=== PATIENT | male | born 1960 | race Caucasian/White ===

== ENCOUNTER 2020-11-30 06:32 | Outpatient (REF) | payer OTHER, SELFPAY ==
[2020-11-30 11:20] LABS: MANUAL DIFF FLAG NO
[2020-11-30 11:35] LABS: Basophils Absolute Auto 0.1 X10*3/uL (0.0-0.2); Basophils Percent Auto 0.6 % (0-2); Eosinophils Absolute Auto 0.6 X10*3/uL (0.0-0.4); Eosinophils Percent Auto 6.5 % (0-4); Hematocrit 48.3 % (42-52); Hemoglobin 16.9 g/dl (14.0-18.0); Imm Gran Abs Auto 0.03 X10*3/uL (0.00-0.03); Imm Gran Pct Auto 0.4 % (0.0-0.4); Lymphocytes Absolute Auto 2.5 X10*3/uL (1.2-4.9); Lymphocytes Percent Auto 29.4 % (20-40); Mean Corpuscular Hemoglobin 31.2 pg (27.0-33.0); Mean Corpuscular Volume 89.3 fL (80-98); Mean Platelet Volume 11.7 fL (9.4-12.4); Monocytes Absolute Auto 0.8 X10*3/uL (0.1-1.2); Monocytes Percent Auto 8.9 % (2-11); Neutrophils Absolute Auto 4.6 X10*3/uL (2.0-8.3); Neutrophils Percent Auto 54.2 % (45-73); Platelet Count 281 X10*3/uL (160-400); Red Blood Count 5.41 X10*6/uL (4.60-5.80); Red Cell Distribution Width 13.2 % (11.0-16.0); White Blood Count 8.5 X10*3/uL (4.8-10.8)
[2020-11-30 11:56] LABS: HDL Cholesterol 21 mg/dL; Triglycerides 4780 mg/dL
[2020-11-30 12:00] LABS: Cholesterol 530 mg/dL
[2020-11-30 12:07] LABS: Hemoglobin A1c % > 14.0 %
[2020-11-30 12:49] LABS: Alanine Aminotransferase 29 U/L (0-40); Albumin Level 4.3 g/dL (3.5-5.0); Alkaline Phosphatase 226 U/L (39-117); Anion Gap 22 (12-20); Aspartate Amino Transferase 20 U/L (5-37); Bilirubin Total 0.5 mg/dL (0.0-1.0); Blood Urea Nitrogen 28 mg/dL (9-16); Calcium 10.1 mg/dL (8.4-10.2); Carbon Dioxide 22 mmol/L (22-29); Chloride 84 mmol/L (96-108); Estimated Glomerular Filt Rate 36; Potassium 5.4 mmol/L (3.3-5.1); Sodium 123 mmol/L (135-145)
[2020-11-30 13:05] LABS: Glucose Fasting 897 mg/dL (60-99)
== END 2020-11-30 06:33 | disposition home or self-care (01) ==
LOC: HO.HMGCLDS 06:32
PROVIDERS: PCP Internal Medicine; Visit Provider Internal Medicine
DX: Z00.01 Encounter for general adult medical examination with abnormal findings (principal); G47.33 Obstructive sleep apnea (adult) (pediatric); J44.1 Chronic obstructive pulmonary disease with (acute) exacerbation
CPT/HCPCS: 36415; 80053; 80061; 83036; 85025

== ENCOUNTER 2020-12-01 10:13 | Emergency (ER) | payer OTHER, SELFPAY ==
--- NOTE | 2020-12-01 10:21 | ECG_ITS ---
Test Reason : GENERAL MEDICAL Blood Pressure : / mmHG Vent. Rate : 105 BPM Atrial Rate : 105 BPM P-R Int : 134 ms QRS Dur : 104 ms QT Int : 344 ms P-R-T Axes : 088 -64 072 degrees QTc Int : 454 ms Sinus tachycardia Left axis deviation Anterior infarct , age undetermined Abnormal ECG No previous ECGs available Referred By: Pily Baptiste Electronically Signed By:KILO MOTA
--- NOTE | 2020-12-01 10:22 | ED.GENADULT ---
HPI - General Adult General Chief complaint: General Medical Stated complaint: Kidney issues Time Seen by Provider: 12/01/20 10:19 Source: patient Mode of arrival: ambulatory (from PCP Cr 1.9 and blood sugar > 800) Limitations: no limitations History of Present Illness HPI narrative: 60 yo male with hx of COPD here with 3 weeks of 10lb weight loss, insomnia, polyuria, polydipsia, severe dry mouth dx with DM 2 days ago by PCP started on 15 units TID with meals, lantus at night - sent to ED today after visit to PCP this AM BS in 800s and Cr 1.9 - patient did take 15 U of insulin at 9am and on ED arrival BS is in 400s, Hemoglobin A1C is > 14.0 Onset (ago): week(s) (3) Severity: moderate Relieving factors: none Exacerbating factors: eating Associated symptoms: loss of appetite, malaise and other (polyuria, polydipsia, weight loss, dry mouth) Treatments prior to arrival: other (started on TID insulin yesterday and lantus took 15 units of short acting insulin at 9am today) Related Data Home Medications Medication Instructions Recorded Confirmed albuterol sulfate 1 puff PO BID PRN 12/01/20 12/01/20 fluticasone propion-salmeterol 1 puff INHALATION BID 12/01/20 12/01/20 [Dimitryxela Inhub] Previous Rx's Medication Instructions Recorded pen needle, diabetic [Lite Touch #100 ea 12/01/20 Insulin Pen [place]] Allergies Allergy/AdvReac Type Severity Reaction Status Date / Time Unable to Assess Allergy Verified 12/01/20 10:21 Review of Systems Review of Systems: Constitutional : pos Weight loss, No Fever, No Chills, No Fatigue, No Malaise ENT/Mouth : No sore throat, No Rhinorrhea Eyes: No Eye Pain, No Swelling, No Redness Cardiovascular : No Chest Pain, No SOB, No Dyspnea on Exertion, No Orthopnea, No Edema, No Palpitations Respiratory : No Cough, No Sputum, No Wheezing Gastrointestinal : No Nausea, No Vomiting, No Diarrhea, No Constipation, No abdominal Pain, No Hematochezia, No Melena Genitourinary : No Dysuria, No Urinary Frequency, No Hematuria, Musculoskeletal : No joint pain, No Myalgias, No Joint Swelling Skin : No Skin Lesions, No rash Neuro : pos Weakness, No Numbness, No Dizziness, No Headache Psych : No Anxiety/Panic, No Depression Heme/Lymph: No Bruising, No Bleeding,No Lymphadenopathy Endocrine : pos Polyuria, pos Polydipsia All other systems reviewed and are negative [facility] Past Medical History Attestation statement: The following information was validated with the patient. Medical History (Updated 12/01/20 @ 16:26 by Pily Baptiste DO) COPD (chronic obstructive pulmonary disease) Diabetes Surgical History S/P laparoscopic cholecystectomy Social History Social History (Updated 12/01/20 @ 10:38 by Pily Baptiste DO) Alcohol intake: never Smoking Status: Former smoker Advance Directives: No Advance Directives Information Provided: Yes Physical Exam Vital Signs: Vital Signs: Last Vital Signs Temp 97.5 F 12/01/20 15:41 Pulse 82 12/01/20 15:41 Resp 16 12/01/20 15:41 BP 122/80 12/01/20 15:41 Pulse Ox 95 12/01/20 15:41 Body Mass Index 27.7 Appearance: Alert. Oriented X3. No acute distress. Eyes: Pupils equal, round and reactive to light. ENT: Pharynx dry MMM Neck: Normal inspection. Neck supple. CVS: Normal heart rate and rhythm. Pulses normal. Respiratory: No respiratory distress. Breath sounds diminished throughout. Abdomen: Soft and nontender. Skin: Skin warm and dry. Normal skin color. poor skin turgor. Extremities: No lower extremity edema. No calf ttp Neuro: Oriented X 3. No motor deficit. No sensory deficit. Course Course Course Narrative: given improvement of his labs from 6am yesterday to 11am today he fixed his DKA with insulin regimen at home - plan is to hydrate, give IV insulin here and recheck trop (no CP/SOB) and repeat chemistries if improved and trop remains flat stable for DC no AG here doubt DKA labs corrected, EKG does have some changes but no ROSALINA, no CP/SOB and trop remains flat also no priors available ACS seems unlikely at this time given he is corrected can be DC is already on insulin TID and lantus by PCP pharmacy called meter in pharmacy just needs insulin pen needles Medical Decision Making MDM Narrative Medical decision making narrative: 60 yo male with hx of COPD here with 3 weeks of 10lb weight loss, insomnia, polyuria, polydipsia, severe dry mouth dx with DM 2 days ago by PCP started on 15 units TID with meals, lantus at night - sent to ED today after visit to PCP this AM BS in 800s and Cr 1.9 - patient did take 15 U of insulin at 9am and on ED arrival BS is in 400s, Hemoglobin A1C is > 14.0 at this time will need labs, EKG, UA, IVF, IV insulin - no prior Cr to base it off of at this time pending workup and treatment in ED may need admission vs outpatient care. Lab Data Result diagrams: 12/01/20 11:09 12/01/20 15:09 Labs: Lab Results 12/01/20 12/01/20 12/01/20 Range/Units 10:26 11:09 11:09 WBC 8.9 (4.8-10.8) X10*3/uL RBC 5.40 (4.60-5.80) X10*6/uL Hgb 16.3 (14.0-18.0) g/dl Hct 46.9 (42-52) % MCV 86.9 (80-98) fL MCH 30.2 (27.0-33.0) pg MCHC 34.8 (31.0-36.0) g/dl RDW 12.9 (11.0-16.0) % Plt Count 244 (160-400) X10*3/uL MPV 10.9 (9.4-12.4) fL Immature Gran % (Auto) 0.3 (0.0-0.4) % Neut % (Auto) 60.6 (45-73) % Lymph % (Auto) 24.5 (20-40) % [place] % (Auto) 8.7 (2-11) % Eos % (Auto) 5.4 H (0-4) % Baso % (Auto) 0.5 (0-2) % Lymph # (Auto) 2.2 (1.2-4.9) X10*3/uL [place] # (Auto) 0.8 (0.1-1.2) X10*3/uL Eos # (Auto) 0.5 H (0.0-0.4) X10*3/uL Baso # (Auto) 0.0 (0.0-0.2) X10*3/uL Abs Immat Gran (auto) 0.03 (0.00-0.03) X10*3/uL Absolute Neuts (auto) 5.4 (2.0-8.3) X10*3/uL Absolute Nucleated RBC 0.000 (0.0-0.012) X10*3/uL Nucleated RBC % (auto) 0.0 (0.0-0.2) /100WBC PT 11.5 (10.8-13.0) SEC INR 1.0 (0.9-1.1) APTT 31.6 (24.1-38.0) SEC VBG pH (7.32-7.43) VBG pCO2 mmHg VBG pO2 mmHg VBG HCO3 (22-26) mmol/L VBG O2 Saturation % VBG Base Excess mmol/L Sodium (135-145) mmol/L Potassium (3.3-5.1) mmol/L Chloride (96-108) mmol/L Carbon Dioxide (22-29) mmol/L Anion Gap (12-20) BUN (9-16) mg/dL Creatinine (0.5-1.4) mg/dL Estim Creat Clear Calc Estimated GFR POC Glucose 457 H* (60-115) mg/dL Random Glucose (60-115) mg/dL Lactic Acid (0.5-2.0) mmol/L Calcium (8.4-10.2) mg/dL Magnesium (1.6-2.6) mg/dL Total Bilirubin (0.0-1.0) mg/dL Direct Bilirubin (0.0-0.5) mg/dL AST (5-37) U/L ALT (0-40) U/L Alkaline Phosphatase (39-117) U/L Troponin I High Sens (<3.5-35.0) ng/L Total Protein (6.5-8.0) g/dL Albumin (3.5-5.0) g/dL Lipase (8-78) U/L Acetone, Qual (Negative) COVID-19 ([place]ULINA) (Negative) COVID-19 Clin Com 12/01/20 12/01/20 12/01/20 Range/Units 11:09 11:09 11:09 WBC (4.8-10.8) X10*3/uL RBC (4.60-5.80) X10*6/uL Hgb (14.0-18.0) g/dl Hct (42-52) % MCV (80-98) fL MCH (27.0-33.0) pg MCHC (31.0-36.0) g/dl RDW (11.0-16.0) % Plt Count (160-400) X10*3/uL MPV (9.4-12.4) fL Immature Gran % (Auto) (0.0-0.4) % Neut % (Auto) (45-73) % Lymph % (Auto) (20-40) % [place] % (Auto) (2-11) % Eos % (Auto) (0-4) % Baso % (Auto) (0-2) % Lymph # (Auto) (1.2-4.9) X10*3/uL [place] # (Auto) (0.1-1.2) X10*3/uL Eos # (Auto) (0.0-0.4) X10*3/uL Baso # (Auto) (0.0-0.2) X10*3/uL Abs Immat Gran (auto) (0.00-0.03) X10*3/uL Absolute Neuts (auto) (2.0-8.3) X10*3/uL Absolute Nucleated RBC (0.0-0.012) X10*3/uL Nucleated RBC % (auto) (0.0-0.2) /100WBC PT (10.8-13.0) SEC INR (0.9-1.1) APTT (24.1-38.0) SEC VBG pH (7.32-7.43) VBG pCO2 mmHg VBG pO2 mmHg VBG HCO3 (22-26) mmol/L VBG O2 Saturation % VBG Base Excess mmol/L Sodium 129 L (135-145) mmol/L Potassium 4.6 (3.3-5.1) mmol/L Chloride 90 L (96-108) mmol/L Carbon Dioxide 24 (22-29) mmol/L Anion Gap 20 (12-20) BUN 28 H (9-16) mg/dL Creatinine 1.63 H (0.5-1.4) mg/dL Estim Creat Clear Calc 53.7 Estimated GFR 43 POC Glucose (60-115) mg/dL Random Glucose 433 H* (60-115) mg/dL Lactic Acid 1.9 (0.5-2.0) mmol/L Calcium 10.1 (8.4-10.2) mg/dL Magnesium 2.2 (1.6-2.6) mg/dL Total Bilirubin 0.7 (0.0-1.0) mg/dL Direct Bilirubin 0.2 (0.0-0.5) mg/dL AST 37 D (5-37) U/L ALT 34 (0-40) U/L Alkaline Phosphatase 132 H D (39-117) U/L Troponin I High Sens 79.8 H (<3.5-35.0) ng/L Total Protein 6.9 (6.5-8.0) g/dL Albumin 4.2 (3.5-5.0) g/dL Lipase 21 (8-78) U/L Acetone, Qual Small H (Negative) COVID-19 ([place]) (Negative) COVID-19 Clin Com 12/01/20 12/01/20 12/01/20 Range/Units 11:09 11:15 12:12 WBC (4.8-10.8) X10*3/uL RBC (4.60-5.80) X10*6/uL Hgb (14.0-18.0) g/dl Hct (42-52) % MCV (80-98) fL MCH (27.0-33.0) pg MCHC (31.0-36.0) g/dl RDW (11.0-16.0) % Plt Count (160-400) X10*3/uL MPV (9.4-12.4) fL Immature Gran % (Auto) (0.0-0.4) % Neut % (Auto) (45-73) % Lymph % (Auto) (20-40) % [place] % (Auto) (2-11) % Eos % (Auto) (0-4) % Baso % (Auto) (0-2) % Lymph # (Auto) (1.2-4.9) X10*3/uL [place] # (Auto) (0.1-1.2) X10*3/uL Eos # (Auto) (0.0-0.4) X10*3/uL Baso # (Auto) (0.0-0.2) X10*3/uL Abs Immat Gran (auto) (0.00-0.03) X10*3/uL Absolute Neuts (auto) (2.0-8.3) X10*3/uL Absolute Nucleated RBC (0.0-0.012) X10*3/uL Nucleated RBC % (auto) (0.0-0.2) /100WBC PT (10.8-13.0) SEC INR (0.9-1.1) APTT (24.1-38.0) SEC VBG pH 7.42 (7.32-7.43) VBG pCO2 40 mmHg VBG pO2 43 mmHg VBG HCO3 26 (22-26) mmol/L VBG O2 Saturation 73.0 % VBG Base Excess 1.5 mmol/L Sodium (135-145) mmol/L Potassium (3.3-5.1) mmol/L Chloride (96-108) mmol/L Carbon Dioxide (22-29) mmol/L Anion Gap (12-20) BUN (9-16) mg/dL Creatinine (0.5-1.4) mg/dL Estim Creat Clear Calc Estimated GFR POC Glucose 365 H* (60-115) mg/dL Random Glucose (60-115) mg/dL Lactic Acid (0.5-2.0) mmol/L Calcium (8.4-10.2) mg/dL Magnesium (1.6-2.6) mg/dL Total Bilirubin (0.0-1.0) mg/dL Direct Bilirubin (0.0-0.5) mg/dL AST (5-37) U/L ALT (0-40) U/L Alkaline Phosphatase (39-117) U/L Troponin I High Sens (<3.5-35.0) ng/L Total Protein (6.5-8.0) g/dL Albumin (3.5-5.0) g/dL Lipase (8-78) U/L Acetone, Qual (Negative) COVID-19 ([place]) Negative (Negative) COVID-19 Clin Com See Note 12/01/20 12/01/20 12/01/20 Range/Units 15:09 15:09 15:35 WBC (4.8-10.8) X10*3/uL RBC (4.60-5.80) X10*6/uL Hgb (14.0-18.0) g/dl Hct (42-52) % MCV (80-98) fL MCH (27.0-33.0) pg MCHC (31.0-36.0) g/dl RDW (11.0-16.0) % Plt Count (160-400) X10*3/uL MPV (9.4-12.4) fL Immature Gran % (Auto) (0.0-0.4) % Neut % (Auto) (45-73) % Lymph % (Auto) (20-40) % [place] % (Auto) (2-11) % Eos % (Auto) (0-4) % Baso % (Auto) (0-2) % Lymph # (Auto) (1.2-4.9) X10*3/uL [place] # (Auto) (0.1-1.2) X10*3/uL Eos # (Auto) (0.0-0.4) X10*3/uL Baso # (Auto) (0.0-0.2) X10*3/uL Abs Immat Gran (auto) (0.00-0.03) X10*3/uL Absolute Neuts (auto) (2.0-8.3) X10*3/uL Absolute Nucleated RBC (0.0-0.012) X10*3/uL Nucleated RBC % (auto) (0.0-0.2) /100WBC PT (10.8-13.0) SEC INR (0.9-1.1) APTT (24.1-38.0) SEC VBG pH (7.32-7.43) VBG pCO2 mmHg VBG pO2 mmHg VBG HCO3 (22-26) mmol/L VBG O2 Saturation % VBG Base Excess mmol/L Sodium 128 L (135-145) mmol/L Potassium 4.1 (3.3-5.1) mmol/L Chloride 94 L (96-108) mmol/L Carbon Dioxide 22 (22-29) mmol/L Anion Gap 16 (12-20) BUN 23 H (9-16) mg/dL Creatinine 1.17 (0.5-1.4) mg/dL Estim Creat Clear Calc 74.9 Estimated GFR > 60 POC Glucose 302 H (60-115) mg/dL Random Glucose 295 H (60-115) mg/dL Lactic Acid (0.5-2.0) mmol/L Calcium 8.9 D (8.4-10.2) mg/dL Magnesium (1.6-2.6) mg/dL Total Bilirubin (0.0-1.0) mg/dL Direct Bilirubin (0.0-0.5) mg/dL AST (5-37) U/L ALT (0-40) U/L Alkaline Phosphatase (39-117) U/L Troponin I High Sens 68.7 H (<3.5-35.0) ng/L Total Protein (6.5-8.0) g/dL Albumin (3.5-5.0) g/dL Lipase (8-78) U/L Acetone, Qual (Negative) COVID-19 ([place]) (Negative) COVID-19 Clin Com 12/01/20 Range/Units 16:18 WBC (4.8-10.8) X10*3/uL RBC (4.60-5.80) X10*6/uL Hgb (14.0-18.0) g/dl Hct (42-52) % MCV (80-98) fL MCH (27.0-33.0) pg MCHC (31.0-36.0) g/dl RDW (11.0-16.0) % Plt Count (160-400) X10*3/uL MPV (9.4-12.4) fL Immature Gran % (Auto) (0.0-0.4) % Neut % (Auto) (45-73) % Lymph % (Auto) (20-40) % [place] % (Auto) (2-11) % Eos % (Auto) (0-4) % Baso % (Auto) (0-2) % Lymph # (Auto) (1.2-4.9) X10*3/uL [place] # (Auto) (0.1-1.2) X10*3/uL Eos # (Auto) (0.0-0.4) X10*3/uL Baso # (Auto) (0.0-0.2) X10*3/uL Abs Immat Gran (auto) (0.00-0.03) X10*3/uL Absolute Neuts (auto) (2.0-8.3) X10*3/uL Absolute Nucleated RBC (0.0-0.012) X10*3/uL Nucleated RBC % (auto) (0.0-0.2) /100WBC PT (10.8-13.0) SEC INR (0.9-1.1) APTT (24.1-38.0) SEC VBG pH (7.32-7.43) VBG pCO2 mmHg VBG pO2 mmHg VBG HCO3 (22-26) mmol/L VBG O2 Saturation % VBG Base Excess mmol/L Sodium (135-145) mmol/L Potassium (3.3-5.1) mmol/L Chloride (96-108) mmol/L Carbon Dioxide (22-29) mmol/L Anion Gap (12-20) BUN (9-16) mg/dL Creatinine (0.5-1.4) mg/dL Estim Creat Clear Calc Estimated GFR POC Glucose 328 H (60-115) mg/dL Random Glucose (60-115) mg/dL Lactic Acid (0.5-2.0) mmol/L Calcium (8.4-10.2) mg/dL Magnesium (1.6-2.6) mg/dL Total Bilirubin (0.0-1.0) mg/dL Direct Bilirubin (0.0-0.5) mg/dL AST (5-37) U/L ALT (0-40) U/L Alkaline Phosphatase (39-117) U/L Troponin I High Sens (<3.5-35.0) ng/L Total Protein (6.5-8.0) g/dL Albumin (3.5-5.0) g/dL Lipase (8-78) U/L Acetone, Qual (Negative) COVID-19 ([place]) (Negative) COVID-19 Clin Com ECG Data Attestation: I personally reviewed and interpreted this ECG as follows: Interpretation: Rate: 105 Rhythm: sinus tachycardia [place]: left Normal P waves. Normal LEE. Normal QRS interval. poor R wave progression ST T wave : no ROSALINA, inverted T waves in V6/aVL qTC: normal prior studies: no priors The study has been interpreted contemporaneously by me. . Critical Care Time Critical Care Time Critical Care Time: Yes Total Critical Care Time: 60 Attestation: 2L of IVF, repeat insulin, call to his pharmacy and providers to check for Rx I attest to this time spent taking care of the patient Discharge Plan Discharge Clinical Impression: Hyperglycemia, JENNIFER (acute kidney injury) Patient Disposition: Home, Self-Care Instructions: Diabetic Hyperglycemia (ED), Diabetes and Nutrition (ED) Additional Instructions: return to ED for any worsening symptoms or concerns PLEASE FOLLOW UP CLOSELY WITH YOUR PRIMARY CARE DOCTOR Prescriptions: New (DME) pen needle, diabetic [Lite Touch Insulin Pen [place]] 29 gauge x 1/2 needle See Rx Instructions .ROUTE .MEDSUPPLY Qty: 100 RF: 0 No Action fluticasone propion-salmeterol [Wixela Inhub] 250-50 mcg/dose blister with device 1 puff inhalation BID RF: 0 albuterol sulfate 90 mcg/actuation HFA aerosol inhaler 1 puff PO BID PRN (Reason: Shortness Of Breath) RF: 0
[2020-12-01 10:36] VITALS: BP 118/79; PULSE 111; RESP 18; TEMP 36.8; O2SAT 95; BMI 27.7
[2020-12-01 10:36] LABS: Glucose, Whole Blood 457 mg/dL (60-115)
[2020-12-01 11:17] LABS: MANUAL DIFF FLAG NO
[2020-12-01] MEDS: 0.9 % Sodium Chloride 1,000 ML 999 ML IVCONT ×2 (11:17→13:00)
[2020-12-01] MEDS: Insulin Regular, Human 100 UNIT/ML 3 ML VIAL IVPUSH ×3 (11:17→15:46)
[2020-12-01 11:21] LABS: Venous Blood Gas Refer to POC result
[2020-12-01 11:21] LABS: VBG Base Excess 1.5 mmol/L; VBG HCO3 26 mmol/L (22-26); VBG pCO2 40 mmHg; VBG pH 7.42 (7.32-7.43); VBG pO2 43 mmHg
[2020-12-01 11:27] LABS: Prothrombin Time 11.5 SEC (10.8-13.0)
[2020-12-01 11:30] LABS: Partial Thromboplastin Time 31.6 SEC (24.1-38.0)
[2020-12-01 11:37] LABS: COVID-19 Test Negative (Negative)
[2020-12-01 11:40] LABS: Basophils Percent Auto 0.5 % (0-2); Eosinophils Absolute Auto 0.5 X10*3/uL (0.0-0.4); Eosinophils Percent Auto 5.4 % (0-4); Hematocrit 46.9 % (42-52); Hemoglobin 16.3 g/dl (14.0-18.0); Imm Gran Abs Auto 0.03 X10*3/uL (0.00-0.03); Imm Gran Pct Auto 0.3 % (0.0-0.4); Lymphocytes Absolute Auto 2.2 X10*3/uL (1.2-4.9); Lymphocytes Percent Auto 24.5 % (20-40); Mean Corpuscular HGB Conc 34.8 g/dl (31.0-36.0); Mean Corpuscular Hemoglobin 30.2 pg (27.0-33.0); Mean Corpuscular Volume 86.9 fL (80-98); Mean Platelet Volume 10.9 fL (9.4-12.4); Monocytes Absolute Auto 0.8 X10*3/uL (0.1-1.2); Monocytes Percent Auto 8.7 % (2-11); Neutrophils Absolute Auto 5.4 X10*3/uL (2.0-8.3); Neutrophils Percent Auto 60.6 % (45-73); Platelet Count 244 X10*3/uL (160-400); Red Cell Distribution Width 12.9 % (11.0-16.0); White Blood Count 8.9 X10*3/uL (4.8-10.8)
[2020-12-01 11:41] LABS: Lactic Acid 1.9 mmol/L (0.5-2.0)
[2020-12-01 11:52] LABS: Acetone, serum QL Small (Negative)
[2020-12-01 11:53] LABS: Troponin-I High Sensitivity 79.8 ng/L (<3.5-35.0)
[2020-12-01 12:04] LABS: Alanine Aminotransferase 34 U/L (0-40); Albumin Level 4.2 g/dL (3.5-5.0); Alkaline Phosphatase 132 U/L (39-117); Anion Gap 20 (12-20); Aspartate Amino Transferase 37 U/L (5-37); Bilirubin Direct 0.2 mg/dL (0.0-0.5); Bilirubin Total 0.7 mg/dL (0.0-1.0); Blood Urea Nitrogen 28 mg/dL (9-16); Calcium 10.1 mg/dL (8.4-10.2); Carbon Dioxide 24 mmol/L (22-29); Chloride 90 mmol/L (96-108); Creatinine Clr Calc Pharmacy 53.7; Estimated Glomerular Filt Rate 43; Glucose Random 433 mg/dL (60-115); Lipase 21 U/L (8-78); Magnesium 2.2 mg/dL (1.6-2.6); Potassium 4.6 mmol/L (3.3-5.1); Sodium 129 mmol/L (135-145); Total Protein 6.9 g/dL (6.5-8.0)
[2020-12-01 12:24] LABS: Glucose, Whole Blood 365 mg/dL (60-115)
[2020-12-01 15:40] LABS: Glucose, Whole Blood 302 mg/dL (60-115)
[2020-12-01 15:41] VITALS: BP 122/80; PULSE 82; RESP 16; TEMP 36.4; O2SAT 95
[2020-12-01 15:42] LABS: Anion Gap 16 (12-20); Blood Urea Nitrogen 23 mg/dL (9-16); Carbon Dioxide 22 mmol/L (22-29); Chloride 94 mmol/L (96-108); Creatinine Clr Calc Pharmacy 74.9; Estimated Glomerular Filt Rate > 60; Glucose Random 295 mg/dL (60-115); Potassium 4.1 mmol/L (3.3-5.1); Sodium 128 mmol/L (135-145)
[2020-12-01 15:49] LABS: Troponin-I High Sensitivity 68.7 ng/L (<3.5-35.0)
[2020-12-01 15:50] LABS: Calcium 8.9 mg/dL (8.4-10.2)
[2020-12-01 16:22] LABS: Glucose, Whole Blood 328 mg/dL (60-115)
== END 2020-12-01 16:45 | disposition home or self-care (01) ==
PROVIDERS: Emergency Provider Emergency Medicine; PCP Internal Medicine
DX: E11.65 Type 2 diabetes mellitus with hyperglycemia (principal); N17.9 Acute kidney failure, unspecified; Z79.4 Long term (current) use of insulin; Z87.891 Personal history of nicotine dependence; Z20.822 Contact with and (suspected) exposure to COVID-19
CPT/HCPCS: 36415; 80048; 80076; 82009; 82947; 83605; 83690; 83735; 84484; 85025; 85610; 85730; 87635; 93005; 96361; 96374; 96376; 99284; 99291

== ENCOUNTER 2021-01-12 07:42 | Outpatient (REF) | payer OTHER, SELFPAY ==
[2021-01-12 11:39] LABS: Estimated Average Glucose 252 mg/dL; Hemoglobin A1c % 10.4 %
[2021-01-12 12:01] LABS: Alanine Aminotransferase 17 U/L (0-40); Albumin Level 4.6 g/dL (3.5-5.0); Alkaline Phosphatase 83 U/L (39-117); Anion Gap 16 (12-20); Aspartate Amino Transferase 17 U/L (5-37); Bilirubin Total 0.5 mg/dL (0.0-1.0); Blood Urea Nitrogen 35 mg/dL (9-16); Calcium 9.6 mg/dL (8.4-10.2); Carbon Dioxide 22 mmol/L (22-29); Chloride 107 mmol/L (96-108); Cholesterol 183 mg/dL; Estimated Glomerular Filt Rate 54; Glucose Random 105 mg/dL (60-115); HDL Cholesterol 32 mg/dL; LDL Cholesterol Calculated 122 mg/dl; Potassium 4.3 mmol/L (3.3-5.1); Sodium 141 mmol/L (135-145); Total Protein 7.1 g/dL (6.5-8.0); Triglycerides 147 mg/dL
[2021-01-12 12:04] LABS: Microalbum/Creatinine Ratio Ur 22.5 ug/mg cr
== END 2021-01-12 07:43 | disposition home or self-care (01) ==
LOC: HO.HMGCLDS 07:42
PROVIDERS: PCP Internal Medicine; Visit Provider Internal Medicine
DX: E11.9 Type 2 diabetes mellitus without complications (principal); E78.2 Mixed hyperlipidemia; I10 Essential (primary) hypertension; Z72.0 Tobacco use
CPT/HCPCS: 36415; 80053; 80061; 82043; 83036

== ENCOUNTER 2021-05-10 06:09 | Outpatient (REF) | payer OTHER, SELFPAY ==
[2021-05-10 12:21] LABS: Alanine Aminotransferase 14 U/L (0-40); Albumin Level 4.6 g/dL (3.5-5.0); Alkaline Phosphatase 81 U/L (39-117); Anion Gap 15 (12-20); Aspartate Amino Transferase 14 U/L (5-37); Bilirubin Total 0.5 mg/dL (0.0-1.0); Blood Urea Nitrogen 24 mg/dL (9-16); Calcium 9.9 mg/dL (8.4-10.2); Carbon Dioxide 22 mmol/L (22-29); Chloride 107 mmol/L (96-108); Cholesterol 112 mg/dL; Estimated Glomerular Filt Rate 51; Glucose Random 111 mg/dL (60-115); HDL Cholesterol 38 mg/dL; LDL Cholesterol Calculated 60 mg/dl; Potassium 4.3 mmol/L (3.3-5.1); Sodium 140 mmol/L (135-145); Triglycerides 73 mg/dL
[2021-05-10 13:42] LABS: Estimated Average Glucose 123 mg/dL; Hemoglobin A1c % 5.9 %
== END 2021-05-10 06:10 | disposition home or self-care (01) ==
LOC: HO.HMGCLDS 06:09
PROVIDERS: PCP Internal Medicine; Visit Provider Internal Medicine
DX: E11.9 Type 2 diabetes mellitus without complications (principal); E78.2 Mixed hyperlipidemia; I10 Essential (primary) hypertension; R19.7 Diarrhea, unspecified; Z72.0 Tobacco use
CPT/HCPCS: 36415; 80053; 80061; 83036

== ENCOUNTER 2021-08-11 06:26 | Outpatient (REF) | payer OTHER, SELFPAY ==
[2021-08-11 11:58] LABS: Estimated Average Glucose 123 mg/dL; Hemoglobin A1c % 5.9 %
[2021-08-11 12:17] LABS: Alanine Aminotransferase 16 U/L (0-40); Albumin Level 4.4 g/dL (3.5-5.0); Alkaline Phosphatase 75 U/L (39-117); Anion Gap 14 (12-20); Aspartate Amino Transferase 13 U/L (5-37); Bilirubin Total 0.4 mg/dL (0.0-1.0); Blood Urea Nitrogen 32 mg/dL (9-16); Calcium 9.7 mg/dL (8.4-10.2); Carbon Dioxide 23 mmol/L (22-29); Chloride 107 mmol/L (96-108); Estimated Glomerular Filt Rate 52; Glucose Random 98 mg/dL (60-115); Potassium 3.8 mmol/L (3.3-5.1); Sodium 140 mmol/L (135-145); Total Protein 6.8 g/dL (6.5-8.0)
== END 2021-08-11 06:27 | disposition home or self-care (01) ==
LOC: HO.HMGCLDS 06:26
PROVIDERS: PCP Internal Medicine; Visit Provider Internal Medicine
DX: E11.9 Type 2 diabetes mellitus without complications (principal); E78.2 Mixed hyperlipidemia; I10 Essential (primary) hypertension; Z72.0 Tobacco use
CPT/HCPCS: 36415; 80053; 83036

== ENCOUNTER 2021-11-21 06:08 | Outpatient (REF) | payer OTHER, SELFPAY ==
[2021-11-21 11:38] LABS: MANUAL DIFF FLAG NO
[2021-11-21 11:52] LABS: Basophils Absolute Auto 0.1 X10*3/uL (0.0-0.2); Basophils Percent Auto 0.8 % (0-2); Eosinophils Absolute Auto 0.9 X10*3/uL (0.0-0.4); Eosinophils Percent Auto 8.4 % (0-4); Hematocrit 43.4 % (42.0-52.0); Hemoglobin 13.9 g/dl (14.0-18.0); Imm Gran Abs Auto 0.03 X10*3/uL (0.00-0.03); Imm Gran Pct Auto 0.3 % (0.0-0.4); Lymphocytes Absolute Auto 3.3 X10*3/uL (1.2-4.9); Lymphocytes Percent Auto 32.4 % (20-40); Mean Corpuscular Hemoglobin 29.9 pg (27.0-33.0); Mean Corpuscular Volume 93.3 fL (80.0-98.0); Mean Platelet Volume 10.3 fL (9.4-12.4); Monocytes Absolute Auto 0.8 X10*3/uL (0.1-1.2); Monocytes Percent Auto 7.7 % (2-11); Neutrophils Absolute Auto 5.1 x10*3/uL (2.0-8.3); Neutrophils Percent Auto 50.4 % (45-73); Platelet Count 268 X10*3/uL (160-400); Red Blood Count 4.65 X10*6/uL (4.60-5.80); Red Cell Distribution Width 13.5 % (11.0-16.0); White Blood Count 10.1 X10*3/uL (4.8-10.8)
[2021-11-21 12:14] LABS: Estimated Average Glucose 120 mg/dL; Hemoglobin A1C 151.4335 umol/L; Hemoglobin A1c % 5.8 %
[2021-11-21 12:26] LABS: Creatinine Urine 66.51 mg/dL; Microalbum/Creatinine Ratio Ur 22.5 ug/mg cr
[2021-11-21 12:35] LABS: Alanine Aminotransferase 15 U/L (0-40); Albumin Level 4.3 g/dL (3.5-5.0); Alkaline Phosphatase 81 U/L (39-117); Anion Gap 12 (12-20); Aspartate Amino Transferase 16 U/L (5-37); Bilirubin Total 0.4 mg/dL (0.0-1.0); Blood Urea Nitrogen 33 mg/dL (9-16); Calcium 9.8 mg/dL (8.4-10.2); Carbon Dioxide 26 mmol/L (22-29); Chloride 107 mmol/L (96-108); Cholesterol 151 mg/dL; Estimated Glomerular Filt Rate 57; Glucose Random 107 mg/dL (60-115); HDL Cholesterol 36 mg/dL; LDL Cholesterol Calculated 83 mg/dl; Sodium 141 mmol/L (135-145); Total Protein 6.7 g/dL (6.5-8.0); Triglycerides 160 mg/dL
== END 2021-11-21 06:09 | disposition home or self-care (01) ==
LOC: HO.HMGCLDS 06:08
PROVIDERS: Visit Provider Internal Medicine
DX: I12.9 Hypertensive chronic kidney disease with stage 1 through stage 4 chronic kidney disease, or unspecified chronic kidney disease (principal); N18.32 Chronic kidney disease, stage 3b; E11.22 Type 2 diabetes mellitus with diabetic chronic kidney disease; E78.2 Mixed hyperlipidemia; J44.9 Chronic obstructive pulmonary disease, unspecified; Z72.0 Tobacco use
CPT/HCPCS: 36415; 80053; 80061; 82043; 83036; 85025

== ENCOUNTER 2022-03-14 06:04 | Outpatient (REF) | payer OTHER, SELFPAY ==
[2022-03-14 11:58] LABS: Estimated Average Glucose 128 mg/dL; Hemoglobin A1c % 6.1 %
[2022-03-14 12:08] LABS: Alanine Aminotransferase 21 U/L (0-40); Albumin Level 4.6 g/dL (3.5-5.0); Alkaline Phosphatase 78 U/L (39-117); Anion Gap 14 (12-20); Aspartate Amino Transferase 17 U/L (5-37); Bilirubin Total 0.2 mg/dL (0.0-1.0); Blood Urea Nitrogen 32 mg/dL (9-16); Calcium 9.7 mg/dL (8.4-10.2); Carbon Dioxide 25 mmol/L (22-29); Chloride 105 mmol/L (96-108); Cholesterol 140 mg/dL; Estimated Glomerular Filt Rate 53; Glucose Random 118 mg/dL (60-115); HDL Cholesterol 39 mg/dL; LDL Cholesterol Calculated 63 mg/dl; Potassium 4.2 mmol/L (3.3-5.1); Sodium 140 mmol/L (135-145); Total Protein 7.2 g/dL (6.5-8.0); Triglycerides 191 mg/dL
== END 2022-03-14 06:05 | disposition home or self-care (01) ==
LOC: HO.HMGCLDS 06:04
PROVIDERS: PCP Internal Medicine; Visit Provider Internal Medicine
DX: Z00.00 Encounter for general adult medical examination without abnormal findings (principal); E78.2 Mixed hyperlipidemia; E11.22 Type 2 diabetes mellitus with diabetic chronic kidney disease; N18.32 Chronic kidney disease, stage 3b
CPT/HCPCS: 36415; 80053; 80061; 83036; 84153

== ENCOUNTER 2022-07-10 06:45 | Outpatient (REF) | payer OTHER, SELFPAY ==
[2022-07-10 12:25] LABS: Estimated Average Glucose 128 mg/dL; Hemoglobin A1c % 6.1 %
[2022-07-10 12:29] LABS: Alanine Aminotransferase 17 U/L (0-40); Albumin Level 4.6 g/dL (3.5-5.0); Alkaline Phosphatase 70 U/L (39-117); Anion Gap 13 (12-20); Aspartate Amino Transferase 16 U/L (5-37); Bilirubin Total 0.5 mg/dL (0.0-1.0); Blood Urea Nitrogen 31 mg/dL (9-16); Calcium 9.9 mg/dL (8.4-10.2); Carbon Dioxide 25 mmol/L (22-29); Chloride 107 mmol/L (96-108); Estimated Glomerular Filt Rate 54; Glucose Random 129 mg/dL (60-115); Potassium 4.1 mmol/L (3.3-5.1); Sodium 141 mmol/L (135-145); Total Protein 6.8 g/dL (6.5-8.0)
== END 2022-07-10 06:46 | disposition home or self-care (01) ==
LOC: HO.HMGCLDS 06:45
PROVIDERS: PCP Internal Medicine; Visit Provider Internal Medicine
DX: I12.9 Hypertensive chronic kidney disease with stage 1 through stage 4 chronic kidney disease, or unspecified chronic kidney disease (principal); E11.22 Type 2 diabetes mellitus with diabetic chronic kidney disease; N18.32 Chronic kidney disease, stage 3b; E78.2 Mixed hyperlipidemia; R97.20 Elevated prostate specific antigen [PSA]; Z72.0 Tobacco use
CPT/HCPCS: 36415; 80053; 83036

== ENCOUNTER 2022-10-10 06:19 | Outpatient (REF) | payer OTHER, SELFPAY ==
[2022-10-10 11:39] LABS: Estimated Average Glucose 137 mg/dL; Hemoglobin A1c % 6.4 %
[2022-10-10 11:48] LABS: Alanine Aminotransferase 22 U/L (0-40); Albumin Level 4.7 g/dL (3.5-5.0); Alkaline Phosphatase 85 U/L (39-117); Anion Gap 12 (12-20); Aspartate Amino Transferase 17 U/L (5-37); Bilirubin Total 0.8 mg/dL (0.0-1.0); Blood Urea Nitrogen 24 mg/dL (9-16); Calcium 9.6 mg/dL (8.4-10.2); Carbon Dioxide 28 mmol/L (22-29); Chloride 105 mmol/L (96-108); Estimated Glomerular Filt Rate > 60; Glucose Fasting 145 mg/dL (60-99); Potassium 4.2 mmol/L (3.3-5.1); Sodium 141 mmol/L (135-145); Total Protein 7.1 g/dL (6.5-8.0)
== END 2022-10-10 06:20 | disposition home or self-care (01) ==
LOC: HO.HMGCLDS 06:19
PROVIDERS: PCP Internal Medicine; Visit Provider Internal Medicine
DX: E11.9 Type 2 diabetes mellitus without complications (principal); I10 Essential (primary) hypertension; N18.32 Chronic kidney disease, stage 3b; Z72.0 Tobacco use
CPT/HCPCS: 36415; 80053; 83036

== ENCOUNTER 2023-01-31 06:08 | Outpatient (REF) | payer OTHER, SELFPAY | END 2023-01-31 06:09 | disposition home or self-care (01) | LOC: HO.HMGCLDS 06:08 | PROVIDERS: PCP Internal Medicine; Visit Provider Internal Medicine | DX: Z12.5 Encounter for screening for malignant neoplasm of prostate (principal); E11.9 Type 2 diabetes mellitus without complications; E78.2 Mixed hyperlipidemia; I10 Essential (primary) hypertension; R97.20 Elevated prostate specific antigen [PSA] | CPT/HCPCS: 36415; 80053; 80061; 82043; 83036; 84153; 85025 ==

== ENCOUNTER 2023-04-29 06:27 | Outpatient (REF) | payer OTHER, SELFPAY ==
[2023-04-29 11:59] LABS: Estimated Average Glucose 128 mg/dL; Hemoglobin A1c % 6.1 % (<6.0)
[2023-04-29 12:21] LABS: Alanine Aminotransferase 19 U/L (0-40); Albumin Level 4.3 g/dL (3.5-5.0); Alkaline Phosphatase 73 U/L (39-117); Anion Gap 14 (12-20); Aspartate Amino Transferase 19 U/L (5-37); Bilirubin Total 0.6 mg/dL (0.0-1.0); Blood Urea Nitrogen 19 mg/dL (9-16); Calcium 9.6 mg/dL (8.4-10.2); Carbon Dioxide 23 mmol/L (22-29); Chloride 108 mmol/L (96-108); Estimated Glomerular Filt Rate 49; Glucose Random 111 mg/dL (60-115); Potassium 4.1 mmol/L (3.3-5.1); Sodium 141 mmol/L (135-145); Total Protein 6.9 g/dL (6.5-8.0)
== END 2023-04-29 06:28 | disposition home or self-care (01) ==
LOC: HO.HMGCLDS 06:27
PROVIDERS: PCP Internal Medicine; Visit Provider Internal Medicine
DX: Z00.00 Encounter for general adult medical examination without abnormal findings (principal); I12.9 Hypertensive chronic kidney disease with stage 1 through stage 4 chronic kidney disease, or unspecified chronic kidney disease; E11.22 Type 2 diabetes mellitus with diabetic chronic kidney disease; N18.9 Chronic kidney disease, unspecified; R97.20 Elevated prostate specific antigen [PSA]; Z72.0 Tobacco use
CPT/HCPCS: 36415; 80053; 83036

== ENCOUNTER 2023-10-21 06:26 | Outpatient (REF) | payer OTHER, SELFPAY ==
[2023-10-21 11:34] LABS: Estimated Average Glucose 131 mg/dL; Hemoglobin A1c % 6.2 % (<6.0)
[2023-10-21 12:53] LABS: Prostate Specific Antigen 5.58 ng/mL (<0.05-4.0)
[2023-10-21 13:18] LABS: Alanine Aminotransferase 15 U/L (0-40); Albumin Level 4.3 g/dL (3.5-5.0); Alkaline Phosphatase 72 U/L (39-117); Anion Gap 12 (12-20); Aspartate Amino Transferase 13 U/L (5-37); Bilirubin Total 0.5 mg/dL (0.0-1.0); Blood Urea Nitrogen 25 mg/dL (9-16); Calcium 9.4 mg/dL (8.4-10.2); Carbon Dioxide 25 mmol/L (22-29); Chloride 109 mmol/L (96-108); Estimated Glomerular Filt Rate 52; Glucose Random 110 mg/dL (60-115); Potassium 3.7 mmol/L (3.3-5.1); Sodium 142 mmol/L (135-145); Total Protein 6.8 g/dL (6.5-8.0)
== END 2023-10-21 06:27 | disposition home or self-care (01) ==
LOC: HO.HMGCLDS 06:26
PROVIDERS: PCP Internal Medicine; Visit Provider Internal Medicine
DX: E11.9 Type 2 diabetes mellitus without complications (principal); I12.9 Hypertensive chronic kidney disease with stage 1 through stage 4 chronic kidney disease, or unspecified chronic kidney disease; R97.20 Elevated prostate specific antigen [PSA]; Z72.0 Tobacco use
CPT/HCPCS: 36415; 80053; 83036; 84153

== ENCOUNTER 2024-02-03 06:25 | Outpatient (REF) | payer OTHER, SELFPAY ==
[2024-02-03 10:29] LABS: Estimated Average Glucose 140 mg/dL; Hemoglobin A1c % 6.5 % (<6.0)
[2024-02-03 10:42] LABS: Alanine Aminotransferase 28 U/L (0-40); Albumin Level 4.6 g/dL (3.5-5.0); Alkaline Phosphatase 92 U/L (39-117); Anion Gap 15 (12-20); Aspartate Amino Transferase 24 U/L (5-37); Bilirubin Total 0.4 mg/dL (0.0-1.0); Blood Urea Nitrogen 31 mg/dL (9-16); Calcium 9.7 mg/dL (8.4-10.2); Carbon Dioxide 23 mmol/L (22-29); Chloride 106 mmol/L (96-108); Cholesterol 157 mg/dL (<200); Estimated Glomerular Filt Rate 43; Glucose Random 131 mg/dL (60-115); HDL Cholesterol 38 mg/dL (>40); LDL Cholesterol Calculated 96 mg/dL (<100); Sodium 140 mmol/L (135-145); Total Protein 7.3 g/dL (6.5-8.0); Triglycerides 118 mg/dL (<150)
[2024-02-03 11:05] LABS: Prostate Specific Antigen 7.26 ng/mL (<0.05-4.0)
[2024-02-03 12:26] LABS: Creatinine Urine 52.45 mg/dL; Microalbum/Creatinine Ratio Ur 13.3 ug/mg cr (<30)
== END 2024-02-03 06:26 | disposition home or self-care (01) ==
LOC: HO.HMGCLDS 06:25
PROVIDERS: PCP Internal Medicine; Visit Provider Internal Medicine
DX: I12.9 Hypertensive chronic kidney disease with stage 1 through stage 4 chronic kidney disease, or unspecified chronic kidney disease (principal); E11.22 Type 2 diabetes mellitus with diabetic chronic kidney disease; N18.9 Chronic kidney disease, unspecified; J44.9 Chronic obstructive pulmonary disease, unspecified; R97.20 Elevated prostate specific antigen [PSA]; Z72.0 Tobacco use
CPT/HCPCS: 36415; 80053; 80061; 82043; 82570; 83036; 84153

== ENCOUNTER 2024-03-25 09:13 | Outpatient (AMB) | payer OTHER, SELFPAY ==
--- NOTE | 2024-03-25 09:24 | A.OFFVIS_ITS ---
Intake Visit Reasons: elevated PSA/BPH Intake Note: New patient is present for Referral for Eleaved PSA/BPH Urology Med:None Patient states that he is fine and denies any urinary issues or concerns at this time Patient denies any history of urinary issues. Patient states that he does not know the reason why he was sent to urologist. Veterinary Surgeon Required: No Accompanied by: Self / Same As Patient Allergies ether Allergy (Mild, Verified 03/25/24 09:27) Unknown atorvastatin Adverse Reaction (Severe, Verified 03/25/24 09:27) stiffness metformin Adverse Reaction (Severe, Verified 03/25/24 09:27) Diarrhea Medication List - Last Reconciled 03/25/24 by Parviz Hammonds MD albuterol sulfate 90 mcg/actuation 1 puff PO BID PRN fluticasone propion-salmeterol 250-50 mcg/dose (Wixela Inhub) 1 puff inhalation BID losartan 100 mg PO DAILY pen needle, diabetic (Lite Touch Insulin Pen [place]) As directed PATINENT HAS HUMALOG PEN PLEASE USE NEEDLE FOR HUMALOG PEN pravastatin 20 mg PO BEDTIME rosuvastatin 10 mg PO BEDTIME HPI Comments Details: Jovon is a pleasant male. He is a patient of Dr. Chin. He is seen for following urologic conditions - elevated PSA Reports minimal concerns with lower urinary tract symptoms No history of UTI Repeat lab work and bladder ultrasound in 6 weeks Elevated PSA PSA 03/19 5.2, 10/19 5.6, 02/18 7.3 LAUREN 2+ soft Does have sex every evening and drinks caffeine PFSH Medical History Obesity Diabetes High cholesterol Kidney disease BPH (benign prostatic hyperplasia) Sleep apnea Diabetes COPD (chronic obstructive pulmonary disease) Surgical History History of hernia repair History of appendectomy S/P laparoscopic cholecystectomy Social History Alcohol intake: never Review of Systems Const Denies chills and Denies fever(s) Card Reports no additional complaints and Denies syncope Resp Denies cough GI Denies abdominal pain and Denies heartburn Reports as per HPI and Denies change in libido Neuro Denies syncope Psych Denies change in libido Endo Denies change in libido Physical Exam Const General: cooperative, healthy appearing, comfortable and no acute distress Orientation/consciousness: patient oriented x3 HEENT Face and sinus: Yes normal facial exam Mouth: moist mucous membranes Neck Neck: Yes normal visual inspection, Yes full ROM and Yes trachea midline Chest Chest palpation & inspection: normal inspection of the chest Resp Effort & Inspection: normal respiratory effort, able to speak in complete sentences and no respiratory distress GI Inspection: Yes normal to inspection Rectal Exam - Male: Yes normal sphincter tone and Yes prostate normal Male General Exam: Yes normal external exam Penis: normal penis and circumcised Meatus: meatus normal Scrotum: scrotum normal Testes: Testes normal Back/Spine/Pelvis Cervical Spine: normal cervical lordosis Thoracic/Lumbar Spine: thoracic and lumbar spine normal to inspection Skin General skin exam: no rashes or lesions noted Neuro General: patient oriented x3, gait normal, tone normal and moves all extremities Extrem General: Yes normal to inspection and Yes capillary refill normal Assessment & Plan Assessment & Plan (1) Elevated PSA: Code(s): R97.20 - Elevated prostate specific antigen [PSA] Category: Medical (2) Diabetes: Code(s): E11.9 - Type 2 diabetes mellitus without complications Category: Medical Plan Six week follow-up imaging and labs Orders: Orders US bladder Today R39.12 - Poor urinary stream, R97.20 - Elevated prostate specific antigen [PSA] PSA,Total (Free>4and<10) 6 Weeks R97.20 - Elevated prostate specific antigen [PSA] Patient Instructions: Imaging studies, laboratory and physical exam results were discussed and reviewed in detail. No major barriers to patient understanding were identified. An opportunity to ask questions regarding the treatment plan was provided. All questions were answered. The patient expressed understanding and agreement with the above treatment plan. The patient is aware they should contact our office by phone for worsening of their current condition or the appearance of new urologic symptoms. Compliance is encouraged with any medications and followup testing that is ordered. It is a privilege to participate in the urologic care of your patient. If you have any questions or concerns regarding treatment for the above conditions, or other urologic issues, please do not hesitate to contact me. The office telephone contact is [phone]. This note is constructed using voice recognition software. While every effort has been made to ensure accuracy paper core machine operator errors may have been included. Yours sincerely, Dr Parviz Hammonds MD, [facility] - Urology Providers of Expert, Compassionate Care for the Genitourinary System Coding Level of Care Code New Pt Level 3 (39516) Diagnoses Elevated PSA R97.20 Diabetes E11.9
== END 2024-03-25 09:49 | disposition home or self-care (01) ==
PROVIDERS: PCP Internal Medicine; Visit Provider Urology
DX: R97.20 Elevated prostate specific antigen [PSA] (principal); E11.9 Type 2 diabetes mellitus without complications
CPT/HCPCS: 99203

== ENCOUNTER → 2024-03-25 09:13 | Outpatient (BNVA) | payer OTHER, SELFPAY | PROVIDERS: PCP Internal Medicine; Visit Provider Urology | DX: R97.20 Elevated prostate specific antigen [PSA] (principal); E11.9 Type 2 diabetes mellitus without complications | CPT/HCPCS: 99202 ==

== ENCOUNTER 2024-05-07 06:05 | Outpatient (REF) | payer OTHER, SELFPAY ==
[2024-05-07 10:17] LABS: Estimated Average Glucose 126 mg/dL; Total Hemoglobin (HGBA1C) 3898.5447 umol/L
[2024-05-07 10:56] LABS: Prostate Specific Antigen 5.82 ng/mL (<0.05-4.0)
[2024-05-07 11:21] LABS: Alanine Aminotransferase 21 U/L (0-40); Albumin Level 4.3 g/dL (3.5-5.0); Alkaline Phosphatase 95 U/L (39-117); Anion Gap 13 (12-20); Aspartate Amino Transferase 19 U/L (5-37); Bilirubin Total 0.4 mg/dL (0.0-1.0); Blood Urea Nitrogen 33 mg/dL (9-16); Calcium 9.5 mg/dL (8.4-10.2); Carbon Dioxide 23 mmol/L (22-29); Chloride 109 mmol/L (96-108); Cholesterol 86 mg/dL (<200); Estimated Glomerular Filt Rate 43; Glucose Random 98 mg/dL (60-115); HDL Cholesterol 32 mg/dL (>40); LDL Cholesterol Calculated 32 mg/dL (<100); Potassium 3.8 mmol/L (3.3-5.1); Sodium 141 mmol/L (135-145); Total Protein 6.7 g/dL (6.5-8.0); Triglycerides 113 mg/dL (<150)
== END 2024-05-07 06:06 | disposition home or self-care (01) ==
LOC: HO.HMGCLDS 06:05
PROVIDERS: PCP Internal Medicine; Visit Provider Internal Medicine
DX: Z00.01 Encounter for general adult medical examination with abnormal findings (principal); E78.00 Pure hypercholesterolemia, unspecified; I12.9 Hypertensive chronic kidney disease with stage 1 through stage 4 chronic kidney disease, or unspecified chronic kidney disease; E11.22 Type 2 diabetes mellitus with diabetic chronic kidney disease; N18.9 Chronic kidney disease, unspecified; R97.20 Elevated prostate specific antigen [PSA]
CPT/HCPCS: 36415; 80053; 80061; 83036; 84153

== ENCOUNTER 2024-12-07 09:49 | Outpatient (REF) | payer MEDICARE, SELFPAY ==
[2024-12-07 13:57] LABS: Estimated Average Glucose 123 mg/dL; Hemoglobin A1C 165.4674 umol/L; Hemoglobin A1c % 5.9 % (<6.0); Total Hemoglobin (HGBA1C) 4026.3895 umol/L
[2024-12-07 14:31] LABS: Prostate Specific Antigen 10.95 ng/mL (<0.05-4.0)
[2024-12-07 14:56] LABS: Alanine Aminotransferase 18 U/L (0-40); Albumin Level 4.3 g/dL (3.5-5.0); Alkaline Phosphatase 72 U/L (39-117); Anion Gap 11 (12-20); Aspartate Amino Transferase 21 U/L (5-37); Bilirubin Total 0.5 mg/dL (0.0-1.0); Blood Urea Nitrogen 29 mg/dL (9-16); Calcium 9.3 mg/dL (8.4-10.2); Carbon Dioxide 26 mmol/L (22-29); Chloride 108 mmol/L (96-108); Estimated Glomerular Filt Rate 57; Glucose Random 163 mg/dL (60-115); Potassium 4.6 mmol/L (3.3-5.1); Sodium 140 mmol/L (135-145); Total Protein 6.7 g/dL (6.5-8.0)
== END 2024-12-07 09:50 | disposition home or self-care (01) ==
LOC: HO.HMGCLDS 09:49
PROVIDERS: PCP Internal Medicine; Visit Provider Internal Medicine
DX: Z12.5 Encounter for screening for malignant neoplasm of prostate (principal); Z13.1 Encounter for screening for diabetes mellitus; E78.00 Pure hypercholesterolemia, unspecified; I12.9 Hypertensive chronic kidney disease with stage 1 through stage 4 chronic kidney disease, or unspecified chronic kidney disease; N18.9 Chronic kidney disease, unspecified; R97.20 Elevated prostate specific antigen [PSA]
CPT/HCPCS: 36415; 80053; 83036; 84153

== ENCOUNTER 2025-01-07 09:30 | Outpatient (AMB) | payer MEDICARE, SELFPAY ==
--- NOTE | 2025-01-07 09:38 | A.OFFVIS_ITS ---
Intake Visit Reasons: elevated PSA/doubling Intake Note: Patient is present for ELEVATED PSA/DOUBLING Urology Medication:NONE Antibiotic Allergy:NONE Blood Thinner:NONE Music Teacher Required: No Allergies ether Allergy (Mild, Verified 01/07/25 09:39) Unknown atorvastatin Adverse Reaction (Severe, Verified 01/07/25 09:39) stiffness metformin Adverse Reaction (Severe, Verified 01/07/25 09:39) Diarrhea HPI Comments Details: Jovon is a pleasant male. He is a patient of Dr. Chin. He is seen for following urologic conditions - elevated PSA Reports minimal concerns with lower urinary tract symptoms No history of UTI Repeat lab work shows elevated PSA Based on PSA score recommend prostate biopsy Elevated PSA PSA 03/19 5.2, 10/19 5.6, 02/18 7.3, 12/20 11.0 LAUREN 2+ soft Does have sex every evening and drinks caffeine PFSH Medical History Obesity Diabetes High cholesterol Kidney disease BPH (benign prostatic hyperplasia) Sleep apnea Diabetes COPD (chronic obstructive pulmonary disease) Surgical History History of hernia repair History of appendectomy S/P laparoscopic cholecystectomy Social History Alcohol intake: never Review of Systems Const Denies chills and Denies fever(s) Card Reports no additional complaints and Denies syncope Resp Denies cough GI Denies abdominal pain and Denies heartburn Reports as per HPI and Denies change in libido Neuro Denies syncope Psych Denies change in libido Endo Denies change in libido Physical Exam Const General: cooperative, healthy appearing, comfortable and no acute distress Orientation/consciousness: patient oriented x3 HEENT Face and sinus: Yes normal facial exam Mouth: moist mucous membranes Neck Neck: Yes normal visual inspection, Yes full ROM and Yes trachea midline Chest Chest palpation & inspection: normal inspection of the chest Resp Effort & Inspection: normal respiratory effort, able to speak in complete sentences and no respiratory distress GI Inspection: Yes normal to inspection Back/Spine/Pelvis Cervical Spine: normal cervical lordosis Thoracic/Lumbar Spine: thoracic and lumbar spine normal to inspection Skin General skin exam: no rashes or lesions noted Neuro General: patient oriented x3, gait normal, tone normal and moves all extremities Extrem General: Yes normal to inspection and Yes capillary refill normal Assessment & Plan Assessment & Plan (1) Elevated PSA: Code(s): R97.20 - Elevated prostate specific antigen [PSA] Category: Medical Plan Risks and benefits regarding trans rectal ultrasound with prostate biopsy were discussed. Options of continued surveillance, no treatment and biopsy were offered. The risks include but are not limited to, urinary tract infection, sepsis, difficulty urinating, bleeding into the rectum or bladder that requires intervention and transfusion,and failure to diagnose prostate cancer. The patient understands the options and the risks involved. They wish to proceed. Printed information was provided to ensure he remains off anticoagulation for the appropriate length of time. He may require cardiology or PCP clearance. An antibiotic will be administered prior to, and following the procedure Medications: New levofloxacin take 1 tablet day before procedure, 1 tablet day of procedure and 1 tablet day after procedure 500 mg PO DAILY 3 days 3 tabs 0RF R97.20 - Elevated prostate specific antigen [PSA] Patient Instructions: This note is constructed using voice recognition software. While every effort has been made to ensure accuracy cut off machine helper errors may have been included. Imaging studies, laboratory and physical exam results were discussed and reviewed in detail. No major barriers to patient understanding were identified. An opportunity to ask questions regarding the treatment plan was provided. All questions were answered. The patient expressed understanding and agreement with the above treatment plan. The patient is aware they should contact our office by phone for worsening of their current condition or the appearance of new urologic symptoms. Compliance is encouraged with any medications and followup testing that is ordered. It is a privilege to participate in the urologic care of your patient. If you have any questions or concerns regarding treatment for the above conditions, or other urologic issues, please do not hesitate to contact me. The office telephone contact is [phone]. Sincerely, Dr Parviz Hammonds MD, [facility] - Urology Compassionate Specialist Care for the Genitourinary System Coding Level of Care Code Est Pt Level 4 (70507) Diagnoses Elevated PSA R97.20
== END 2025-01-07 10:10 | disposition home or self-care (01) ==
PROVIDERS: PCP Internal Medicine; Visit Provider Urology
DX: R97.20 Elevated prostate specific antigen [PSA] (principal)
CPT/HCPCS: 99214

== ENCOUNTER → 2025-01-07 09:30 | Outpatient (BNVA) | payer MEDICARE, SELFPAY | PROVIDERS: PCP Internal Medicine; Visit Provider Urology | DX: R97.20 Elevated prostate specific antigen [PSA] (principal) | CPT/HCPCS: 99212 ==

== ENCOUNTER 2025-02-04 07:37 | Outpatient (REF) | payer MEDICARE, OTHER, SELFPAY ==
[2025-02-04] MEDS: Lidocaine HCl 1 % MPF 30 ML VIAL SUBCUT (08:34)
--- NOTE | 2025-02-04 08:44 | P.OP_ITS ---
Operative Note Operative Note Date of Service: 02/04/25 Narrative: Preoperative diagnosis: Elevated PSA Postoperative diagnosis: Elevated PSA Procedure: 1. transrectal ultrasound measurement of prostate 2. transrectal ultrasound-guided pudendal nerve block 3. transrectal ultrasound-guided prostate biopsy 12 core Surgeon: Dr. Parviz Hammonds Anesthetic: 10cc 1% lidocaine Indications for procedure: Elevated PSA 11 Counselling: Technical aspects, risks and benefits of proposed procedure were discussed in full. All questions have been answered, written consent has been obtained and patient agrees to proceed. Procedure: The patient was brought into the procedure area and placed in a left lateral decubitus position. Patient identity confirmed. Perioperative antibiotics confirmed. Safety pause time out performed. LAUREN was performed to dilate rectal sphincter Iodine 10cc with 60 cc gel was placed per rectum to reduce infection risk using a catheter tip syringe. 8 Hz Irving rectal end-fire ultrasound probe was placed transrectally without difficulty. The prostate was visualized. Seminal vesicles were normal. Prostate margins were clearly demarcated. Bladder was seen superiorly. No cystic structures were noted No calcifications were noted at the surgical margin The prostate was otherwise heterogenous in nature. No ultrasound evidence of localized prostate cancer. Did have small vessels running through prostate. The prostate was measured in 3 dimensions Prostatic Width: 5.5 cm Prostatic Height: 4.3 cm Urethral Length: 3.3 cm Total volume equals : 45 ml An ultrasound-guided pudendal nerve block was performed using a 22 gauge spinal needle in the sagittal plane. 4 cc of 1% lidocaine placed at the junction of each seminal vesicle and 2 cc placed at the apex of the prostate. A 12 core biopsy was performed with 6 cores each side using an 18 gauge prostate biopsy gun. Two cores each were taken at the prostate apex, mid and base on each side. Cores were spaced between lateral and medial aspects. Each core was examined as placed on specimen foam as part of bottle house quality control technician to ensure a minimum 1 cm of length and minimal discontinuity. He tolerated the procedure well with minimal rectal bleeding. Blood pressure remained stable following procedure. He was able to ambulate to bathroom after 5 minutes. Printed instructions regarding antibiotic use and common adverse events from the procedure such as low-grade temperature, potential infection and bleeding were given. He understands to call the office or go to an emergency room should any of these events arise. Pathology: 12 core prostate biopsy. CPT code 82925: Transrectal ultrasound; this is a diagnostic test for evaluation of the prostate and surrounding structures, looking for abnormalities or suspicious areas worrisome for cancer CPT code 37577: Biopsy, prostate; needle or punch, single or multiple, any approach CPT code 06436: Ultrasonic guidance for needle placement (eg, biopsy, aspiration, injection, localization device), imaging supervision and interpretation
== END 2025-02-04 07:38 | disposition home or self-care (01) ==
LOC: HO.US 07:37
PROVIDERS: PCP Internal Medicine; Visit Provider Urology
DX: R97.20 Elevated prostate specific antigen [PSA] (principal)
CPT/HCPCS: 55700; 76942; 88305; 88342; J2003

== ENCOUNTER → 2025-02-04 07:37 | Outpatient (BNV) | payer MEDICARE, OTHER, SELFPAY | PROVIDERS: PCP Internal Medicine; Visit Provider Urology | DX: R97.20 Elevated prostate specific antigen [PSA] (principal) | CPT/HCPCS: 55700; 76872; 76942 ==

== ENCOUNTER 2025-02-23 13:22 | Outpatient (AMB) | payer MEDICARE, OTHER, SELFPAY ==
--- NOTE | 2025-02-23 13:22 | MHC.OFFVIS ---
Intake Visit Reasons: Prostate biopsy results Intake Note: Patient is present for telehealth for prostate Bx results 02/04/2025 Urology Medication:NONE Antibiotic Allergy:NONE Blood Thinner:NONE Duplicate Maker Required: No Accompanied by: Self / Same As Patient Allergies ether Allergy (Mild, Verified 02/23/25 13:24) Unknown atorvastatin Adverse Reaction (Severe, Verified 02/23/25 13:24) stiffness metformin Adverse Reaction (Severe, Verified 02/23/25 13:24) Diarrhea HPI Comments Details: Jovon is a pleasant male. He is a patient of Dr. Chin. He is seen for following urologic conditions - elevated PSA Telemedicine Evaluation 15 min Consultation [employer] Dylan Video Discussed biopsy finding Recommend prostate MRI Prolaris Start finasteride Prostate cancer - low-grade, low volume disease Histologic type: Adenocarcinoma, acinar type Histologic grade: David score: 3+3=6 Grade group: 1 Tumor quantitation:Number cores positive: 2 Total number of cores: 12 % of tissue involved: 5% of all tissue examined PSA 11 PT1c 40 g on TRUS Elevated PSA PSA 03/19 5.2, 10/19 5.6, 02/18 7.3, 12/20 11.0 LAUREN 2+ soft Does have sex every evening and drinks caffeine PFSH Medical History Obesity Diabetes High cholesterol Kidney disease BPH (benign prostatic hyperplasia) Sleep apnea Diabetes COPD (chronic obstructive pulmonary disease) Surgical History History of hernia repair History of appendectomy S/P laparoscopic cholecystectomy Social History Alcohol intake: never Review of Systems Const All systems reviewed & are unremarkable except as noted in HPI and below Reports no additional complaints Resp Reports no additional complaints GI Reports no additional complaints Reports as per HPI Musc Reports no additional complaints Physical Exam Telemedicine evaluation Appropriate responses Regular breathing rate and rhythm HEENT Head: Yes normal to inspection Ears: hearing grossly normal bilaterally Eyes General: appearance normal, both eyes and all related structures Neck Neck: Yes normal visual inspection Chest Chest palpation & inspection: normal inspection of the chest Resp Effort & Inspection: normal respiratory effort and able to speak in complete sentences Telehealth Telehealth Telehealth Platform: [employer] Location of provider rendering services: practice address Location of patient: address on file Patient Identification confirmed using: Name, : Yes Telehealth method: video Patient verbally consented to treatment: Yes Patient verbally consented to billing insurance company: Yes Patient informed of any privacy concerns related to visit: Yes Minutes spent on Phone/Video with Pt.: 15 Assessment & Plan Assessment & Plan (1) Hormone sensitive prostate cancer: Code(s): C61 - Malignant neoplasm of prostate; Z19.1 - Hormone sensitive malignancy status Category: Medical Plan Imaging, genetics Follow-up Orders: Orders MR Prostate wo/w con 4 Weeks C61 - Malignant neoplasm of prostate, R97.20 - Elevated prostate specific antigen [PSA], Z19.1 - Hormone sensitive malignancy status Medications: New finasteride 5 mg PO DAILY 30 tabs 1RF 30 days C61 - Malignant neoplasm of prostate, Z19.1 - Hormone sensitive malignancy status Patient Instructions: This note is constructed using voice recognition software. While every effort has been made to ensure accuracy rail car mechanic errors may have been included. Imaging studies, laboratory and physical exam results were discussed and reviewed in detail. No major barriers to patient understanding were identified. An opportunity to ask questions regarding the treatment plan was provided. All questions were answered. The patient expressed understanding and agreement with the above treatment plan. The patient is aware they should contact our office by phone for worsening of their current condition or the appearance of new urologic symptoms. Compliance is encouraged with any medications and followup testing that is ordered. It is a privilege to participate in the urologic care of your patient. If you have any questions or concerns regarding treatment for the above conditions, or other urologic issues, please do not hesitate to contact me. The office telephone contact is [phone]. Sincerely, Dr Parviz Hammonds MD, [facility] - Urology Compassionate Specialist Care for the Genitourinary System Coding Level of Care Code Tele Est Pt Level 4 (85018) Complex EM visit Add On G2211 Diagnoses Hormone sensitive prostate cancer C61; Z19.1
== END 2025-02-23 15:35 | disposition home or self-care (01) ==
LOC: HO.HUSH 13:22
PROVIDERS: PCP Internal Medicine; Visit Provider Urology
DX: C61 Malignant neoplasm of prostate (principal); Z19.1 Hormone sensitive malignancy status
CPT/HCPCS: 99214; G2211

== ENCOUNTER 2025-03-09 09:03 | Outpatient (REF) | payer MEDICARE, OTHER, SELFPAY ==
--- NOTE | ~2025-03-09 | MR_ITS ---
EXAMINATION: MR PROSTATE WITHOUT THEN WITH IV CONTRAST HISTORY: R97.20 - Elevated prostate specific antigen [PSA] TECHNIQUE: 1.5T body coil survey of the pelvis was performed. Phase array coil imaging of the prostate was performed in multiplanar high resolution axial, coronal, sagittal fast spin echo T2 and axial T1 weighted imaging sequences. Axial diffusion imaging at intermediate and high field performed with ADC mapping. Next, mL Gadavist was given by intravenous infusion, and dynamic axial imaging performed. 3-D reconstructions and post-processing were not performed (see below). COMPARISON: There are no prior studies available for comparison. CLINICAL DATA: Most recent PSA: 10.95 ng/mL on 12/07/2024. PSA Density: 0.35 ng/mL squared Prostate Biopsy: Positive biopsy on 02/04/2025 with a David score 3+3 = 6. FINDINGS: Prostate size: 3.8 x 4.8 x 3.3 cm. Calculated prostate volume is 31.3 mL. Hemorrhage: There is diffuse increased T1 signal intensity throughout the peripheral gland consistent with hemorrhage from recent biopsy. Transitional Zone: There is moderate heterogeneous nodular hypertrophy of the transitional zone. Peripheral Zone: There is diffuse heterogeneous T2 signal intensity within the peripheral zone, likely secondary to hemorrhage. Diffusion-weighted images are markedly limited due to artifact from gas in the rectum. Seminal Vesicles/Ejaculatory Ducts: Symmetric and normal in signal and caliber. Pelvic Lymph Nodes: No obturator or internal iliac lymph nodes meeting size criteria for adenopathy. Marrow Signal: Normal marrow signal and enhancement without focal lesion identified. MR/MR Prostate wo/w con IMPRESSION: Nondiagnostic examination due to diffuse hemorrhage throughout the peripheral gland from prior biopsy and artifact on diffusion-weighted imaging from gas in the rectum. A repeat study is recommended in 4-6 weeks to allow for resolution of hemorrhage. Use of an enema prior to the study should also be considered. PI-RADS Assessment Categories PI-RADS 1: Very low (clinically significant cancer is highly unlikely to be present) PI-RADS 2: Low (clinically significant cancer is unlikely to be present) PI-RADS 3: Intermediate (the presence of clinically significant cancer is equivocal) PI-RADS 4: High (clinically significant cancer is likely to be present) PI-RADS 5: Very high (clinically significant cancer is highly likely to be present) [employer]. MR Prostate Imaging Reporting and Data System version 2.1. [email or web address] Electronically signed by: Chris Carrera MD 03/09/2025 10:22 AM EDT
== END 2025-03-09 09:04 | disposition home or self-care (01) ==
LOC: HO.MRI 09:03
PROVIDERS: PCP Internal Medicine; Visit Provider Urology
DX: R97.20 Elevated prostate specific antigen [PSA] (principal); C61 Malignant neoplasm of prostate; Z19.1 Hormone sensitive malignancy status
CPT/HCPCS: 72197; 76377; A9585

== ENCOUNTER → 2025-03-09 09:03 | Outpatient (BNV) | payer MEDICARE, OTHER, SELFPAY | PROVIDERS: PCP Internal Medicine; Visit Provider Radiology Diagnostic Radiology | DX: R97.20 Elevated prostate specific antigen [PSA] (principal) | CPT/HCPCS: 72197 ==

== ENCOUNTER 2025-04-09 09:05 | Outpatient (AMB) | payer MEDICARE, OTHER, SELFPAY ==
--- NOTE | 2025-04-09 09:06 | A.OFFVIS_ITS ---
Intake Visit Reasons: 6w/MRI Intake Note: Patient is present for 6WK Urology Medication:FINASTERIDE Antibiotic Allergy:NONE Blood Thinner:NONE Imaging done : MRI 03/09/25 High Lift Driver Required: No Accompanied by: Self / Same As Patient Allergies ether Allergy (Mild, Verified 04/09/25 09:06) Unknown atorvastatin Adverse Reaction (Severe, Verified 04/09/25 09:06) stiffness metformin Adverse Reaction (Severe, Verified 04/09/25 09:06) Diarrhea HPI Comments Details: Jovon is a pleasant male. He is a patient of Dr. Chin. He is seen for following urologic conditions - elevated PSA Follow-up prostate cancer Staging Prostate MRI - nondiagnostic secondary to hemorrhage Prolaris - cell cycle score 3.7, placement in favorable intermediate group secondary to PSA over 10, this likely due to inflammation not prostate cancer Trial six-month finasteride repeat PSA and imaging Prostate cancer - low-grade, low volume disease Histologic type: Adenocarcinoma, acinar type Histologic grade: [place] score: 3+3=6 Grade group: 1 Tumor quantitation:Number cores positive: 2 Total number of cores: 12 % of tissue involved: 5% of all tissue examined PSA 11 PT1c 40 g on TRUS Elevated PSA PSA 03/19 5.2, 10/19 5.6, 02/18 7.3, 12/20 11.0 LAUREN 2+ soft Does have sex every evening and drinks caffeine PFSH Medical History Obesity Diabetes High cholesterol Kidney disease BPH (benign prostatic hyperplasia) Sleep apnea Diabetes COPD (chronic obstructive pulmonary disease) Surgical History History of hernia repair History of appendectomy S/P laparoscopic cholecystectomy Social History Alcohol intake: never Review of Systems Const Denies chills and Denies fever(s) Card Reports no additional complaints and Denies syncope Resp Denies cough GI Denies abdominal pain and Denies heartburn Reports as per HPI and Denies change in libido Neuro Denies syncope Psych Denies change in libido Endo Denies change in libido Physical Exam Const General: cooperative, healthy appearing, comfortable and no acute distress Orientation/consciousness: patient oriented x3 HEENT Face and sinus: Yes normal facial exam Mouth: moist mucous membranes Neck Neck: Yes normal visual inspection, Yes full ROM and Yes trachea midline Chest Chest palpation & inspection: normal inspection of the chest Resp Effort & Inspection: normal respiratory effort, able to speak in complete sentences and no respiratory distress GI Inspection: Yes normal to inspection Back/Spine/Pelvis Cervical Spine: normal cervical lordosis Thoracic/Lumbar Spine: thoracic and lumbar spine normal to inspection Skin General skin exam: no rashes or lesions noted Neuro General: patient oriented x3, gait normal, tone normal and moves all extremities Extrem General: Yes normal to inspection and Yes capillary refill normal Assessment & Plan Assessment & Plan (1) Hormone sensitive prostate cancer: Code(s): C61 - Malignant neoplasm of prostate; Z19.1 - Hormone sensitive malignancy status Category: Medical Plan 1. Prostate Cancer - Monitor PSA and repeat MRI in six months. - Start finasteride for PSA management. 2. Prostate Inflammation - Monitor with PSA and MRI. 3. Diabetes (Resolved) - Continue lifestyle changes. Discussion Notes We discussed the current status of your prostate cancer, which is low grade and confirmed by genetic testing. The plan is to monitor your PSA levels and repeat the MRI in six months to assess any changes. We also talked about starting finasteride to help manage your PSA levels and address prostate inflammation. Additionally, we reviewed your history of diabetes, which is currently resolved, and emphasized the importance of maintaining lifestyle changes to prevent recurrence. Patient Instructions - Take finasteride as prescribed to manage PSA levels. - Return for follow-up in six months for PSA test and MRI. - Maintain current lifestyle changes to prevent diabetes recurrence. Orders: Orders PSA,Total (Free>4and<10) 6 Months C61 - Malignant neoplasm of prostate, Z19.1 - Hormone sensitive malignancy status MR CAD 6 Months C61 - Malignant neoplasm of prostate, Z19.1 - Hormone sensitive malignancy status MR Prostate wo/w con 6 Months C61 - Malignant neoplasm of prostate, Z19.1 - Hormone sensitive malignancy status Medications: Changed From finasteride 5 mg PO DAILY 30 days 30 tabs 1RF C61 - Malignant neoplasm of prostate, Z19.1 - Hormone sensitive malignancy status To finasteride 5 mg PO DAILY 90 tabs 1RF 90 days C61 - Malignant neoplasm of prostate, Z19.1 - Hormone sensitive malignancy status Patient Instructions: This note is constructed using voice recognition software. While every effort has been made to ensure accuracy litigation support analyst errors may have been included. Imaging studies, laboratory and physical exam results were discussed and reviewed in detail. No major barriers to patient understanding were identified. An opportunity to ask questions regarding the treatment plan was provided. All questions were answered. The patient expressed understanding and agreement with the above treatment plan. The patient is aware they should contact our office by phone for worsening of their current condition or the appearance of new urologic symptoms. Compliance is encouraged with any medications and followup testing that is ordered. It is a privilege to participate in the urologic care of your patient. If you have any questions or concerns regarding treatment for the above conditions, or other urologic issues, please do not hesitate to contact me. The office telephone contact is [phone]. Sincerely, Dr Parviz Hammonds MD, [facility] - Urology Compassionate Specialist Care for the Genitourinary System Coding Level of Care Code Est Pt Level 4 (09507) Complex EM visit Add On G2211 Diagnoses Hormone sensitive prostate cancer C61; Z19.1
== END 2025-04-09 09:29 | disposition home or self-care (01) ==
LOC: HO.HUSH 09:06
PROVIDERS: PCP Internal Medicine; Visit Provider Urology
DX: C61 Malignant neoplasm of prostate (principal); Z19.1 Hormone sensitive malignancy status
CPT/HCPCS: 99214; G2211

== ENCOUNTER → 2025-04-09 09:05 | Outpatient (BNVA) | payer MEDICARE, OTHER, SELFPAY | PROVIDERS: PCP Internal Medicine; Visit Provider Urology | DX: C61 Malignant neoplasm of prostate (principal); Z19.1 Hormone sensitive malignancy status; E11.9 Type 2 diabetes mellitus without complications | CPT/HCPCS: 99212 ==